=== PATIENT | female | born 1945 | race African-American/Black ===

== ENCOUNTER → 2017-02-22 | Outpatient (CLI) | payer MEDICARE, BC ==
--- NOTE | ~2017-02-22 | CR58 ---
[facility] A Service of [facility] & [facility] RADIOLOGY TEXT RESULTS PATIENT: TOMMY HAMM LOCATION: [facility] : 47 UNIT #: [id number] AGE: [address]: Kristopher Colbert MD SEX: F ORDER DR: [id number] [facility] [address] [place], [place] [address] [id number] O MR#: [id number] Acc #: [id number] NAME: TOMMY HAMM : 1945 SEX: F STUDY DATE/TIME: 02/22/2017 15:50 UNIT: [facility] ROOM: STUDY DESCRIPTION: CR Cervical Spine 2 or 3 Views Attending Physician: Kristopher Colbert M.D. Referring Physician: Kristopher Colbert M.D. Ordering Physician: Kristopher Colbert M.D. Primary Care Physician: Primary Care Physician No MEDICAL IMAGING REPORT This report is preliminary unless electronic signature is present EXAM Cervical spine 3 view series HISTORY Left upper extremity neck tingling for a week and pain. FINDINGS AP, lateral and odontoid views of the cervical spine were obtained. There are anterior osteophyte formations from C3 through C7. There is posterior spurring at C5-6. There is disc space narrowing at 3-4, 4-5, 5-6 and 6-7. IMPRESSION Fairly diffuse, but mild degenerative changes with some posterior osteophyte formation at C5-6. There is no subluxation identified. Dictated by... Hunter Paulson M.D. THIS IS AN ELECTRONICALLY VERIFIED REPORT Hunter Paulson M.D. at 02/23/2017 3:55 PM FEL/to TD: 02/22/2017 22:06 JOB #: [id number] MEDICAL IMAGING REPORT Page 1 of 1 COPY
--- NOTE | ~2017-02-22 | CR229 ---
[facility] A Service of [facility] & [facility] RADIOLOGY TEXT RESULTS PATIENT: TOMMY HAMM LOCATION: [facility] : 47 UNIT #: [id number] AGE: [address]: Kristopher Colbert MD SEX: F ORDER DR: [id number] [facility] [address] [place], [place] [address] [id number] O MR#: [id number] Acc #: [id number] NAME: TOMMY HAMM : 1945 SEX: F STUDY DATE/TIME: 02/22/2017 15:50 UNIT: [facility] ROOM: STUDY DESCRIPTION: CR Shoulder Min 2 View Lt Attending Physician: Kristopher Colbert M.D. Referring Physician: Kristopher Colbert M.D. Ordering Physician: Kristopher Colbert M.D. MEDICAL IMAGING REPORT This report is preliminary unless electronic signature is present EXAM Left shoulder HISTORY Left shoulder pain for a week. FINDINGS AP view with internal and external rotation of the shoulder girdle shows satisfactory relationship of the humeral head and glenoid fossa. The joint space is normal. There is no identifiable fracture or dislocation or bony destructive process about the shoulder girdle anatomy. The acromioclavicular joint is normal. There is no radiopaque foreign body in the region. IMPRESSION Normal shoulder. Dictated by... Hunter Paulson M.D. THIS IS AN ELECTRONICALLY VERIFIED REPORT Hunter Paulson M.D. at 02/23/2017 3:55 PM FEL/pcl TD: 02/22/2017 22:05 JOB #: [id number] MEDICAL IMAGING REPORT Page 1 of 1 COPY
== END | disposition home or self-care (01) ==
LOC: CRAD 15:15
DX: M25.512 Pain in left shoulder (principal); M47.892 Other spondylosis, cervical region; M25.78 Osteophyte, vertebrae
CPT/HCPCS: 72040; 73030